=== PATIENT | female | born 1950 | race African-American/Black ===

== ENCOUNTER 2016-05-17 07:00 | Day surgery (SDC) | payer MEDICARE, MEDICAID ==
[~2016-05-17] VITALS: Ht 167.6 cm; Wt 46.4 kg
[~2016-05-17 07:00] MED LIST: ASPI-1035 PO; ATOR10TA PO; FLUT1DIS3 INH; FOLI-43 PO; Famotidine PO; LEVO500T15 PO; METH4TAB17 PO; Tramadol Hcl PO
[2016-05-17] MEDS ORDERED: FENTANYL CITRATE/PF 50MCG/ML 2ML VIAL ONE (10:25)
[2016-05-17 10:48] VITALS: BP 115/79
[2016-05-17] MEDS ORDERED: ALBU2SYR PO (10:58)
[2016-05-17 11:30] VITALS: BP 115/79
[2016-05-17 11:45] VITALS: BP 114/76
[2016-05-17] MEDS ORDERED: FENTANYL CITRATE/PF 50MCG/ML 2ML VIAL IV ONE (11:45)
[2016-05-17 12:00] VITALS: BP 112/70
[2016-05-17 12:05] VITALS: BP 115/79
[2016-05-17] MEDS ORDERED: SODIUM BICARBONATE 4% (2.4MEQ) 5ML VIAL IV ONE (14:05)
[2016-05-17] MEDS ORDERED: LIDOCAINE HCL 1% 20ML VIAL (Pyxis) INJ ONE (14:05)
== END 2016-05-17 15:00 | disposition home or self-care (01) ==
LOC: RAD 07:00 → EDSTATUS 05-20 07:05
PROVIDERS: ATTEND Internal Medicine Hematology & Oncology
PROC: 0B9L3ZX Drainage of Left Lung, Percutaneous Approach, Diagnostic (ICD-10-PCS; 2016-05-17)
PROC: BG44ZZZ Ultrasonography of Thyroid Gland (ICD-10-PCS; principal; 2016-05-17 12:40)
DX: R91.1 Solitary pulmonary nodule (principal); J43.9 Emphysema, unspecified
CPT/HCPCS: 32405; 71010; 76942; 88305; J3490; J3010

== ENCOUNTER 2016-05-28 08:28 | Emergency (ER) | payer MEDICARE, MEDICAID ==
[~2016-05-28] VITALS: Ht 162.6 cm; Wt 49.0 kg
[~2016-05-28 08:28] MED LIST changes: +ALBU2SYR PO
[2016-05-28] MEDS ORDERED: MORPHINE SULFATE 10 MG/ML CPJ IM ONE (09:15)
[2016-05-28] MEDS ORDERED: DIAZEPAM 5 MG TABLET PO ONE (10:15)
[2016-05-28 11:30] VITALS: BP 106/70
[2016-05-28] MEDS ORDERED: IPRATROPIUM/ALBUTEROL 0.5-3(2.5)MG/3ML NEB HHN ONE (12:30)
== END 2016-05-28 14:30 | disposition home or self-care (01) ==
LOC: ER 09:01
DX: M79.604 Pain in right leg (principal); M62.838 Other muscle spasm; J44.9 Chronic obstructive pulmonary disease, unspecified; Z88.0 Allergy status to penicillin; Z79.899 Other long term (current) drug therapy; Z79.82 Long term (current) use of aspirin; Z79.1 Long term (current) use of non-steroidal anti-inflammatories (NSAID)
CPT/HCPCS: 93970; 94640; 96372; 99284; J2270; J7620

== ENCOUNTER 2016-05-30 05:56 | Day surgery (SDC) | payer MEDICARE, MEDICAID ==
[~2016-05-30] VITALS: Ht 165.1 cm; Wt 36.3 kg
[2016-05-30 06:57] LABS: BASOPHILS % 0.7 % (0.0-2.0); EOSINOPHILS % 0.6 % (0.0-5.0); HEMATOCRIT. 26.5 % (36.0-48.0); HEMOGLOBIN. 8.5 g/dL (12.0-16.0); MEAN CORPUSCULAR HEMOGLOBIN 29.5 pg (28.0-32.0); MEAN CORPUSCULAR VOLUME 92.2 fL (81.0-99.0); MEAN PLATELET VOLUME 8.1 fl (7.4-10.4); MONOCYTES % 9.4 % (2.0-8.0); NEUTROPHILS % 76.3 % (40.0-76.0); RED BLOOD CELL COUNT 2.87 mill/uL (4.2-5.4); RED CELL DISTRIBUTION WIDTH 20.4 % (11.6-14.6); WHITE BLOOD COUNT 11.4 x1000/uL (4.5-11.0)
[2016-05-30 07:06] LABS: ADD RBC MORPHOLOGY YES; DIFFERENTIAL COMMENT 1; PLATELET 1573 x1000/uL (130-400)
[2016-05-30 07:08] LABS: CHLORIDE 98 mEq/L (98-107); INDEX HEMOLYSI 1 (1-3); INDEX ICTERIC 1 (1-4); INDEX LIPEMIC 1 (1-3)
[2016-05-30 07:14] LABS: ANION GAP 12; CALCIUM 9.8 mg/dL (8.5-10.1); CARBON DIOXIDE 33 mEq/L (21-32); UREA NITROGEN BLOOD 5 mg/dL (7-21); eGFR > 60 mL/min (>60)
[2016-05-30] MEDS ORDERED: LACTATED RINGERS 1,000 ML IV SCH (07:17)
[2016-05-30] MEDS ORDERED: LIDOCAINE HCL 1% 20ML VIAL (Pyxis) INJ ONE (07:36)
[2016-05-30] MEDS ORDERED: PROPOFOL 200MG/20ML VIAL IV ONE (07:41)
[2016-05-30] MEDS ORDERED: HYDROCODONE PO (07:42)
[2016-05-30] MEDS ORDERED: HYDR500C18 PO (07:44)
[2016-05-30 08:01] LABS: ANISOCYTOSIS 2+; GIANT PLATELETS FEW; PLATELET ESTIMATE MARKEDLY INCREASED; TARGET CELLS FEW
[2016-05-30] MEDS: FENTANYL CITRATE/PF 50MCG/ML 2ML VIAL IV PRN ×3 (08:41→10:35)
[2016-05-30] MEDS ORDERED: ALBUTEROL (0.083%) 2.5MG/3ML NEB HHN NR (10:33)
[2016-05-30 10:35] VITALS: BP 125/80
== END 2016-05-30 12:05 | disposition home or self-care (01) ==
LOC: OR 05:56
PROVIDERS: ATTEND Pathology Anatomic Pathology & Clinical Pathology
DX: D46.9 Myelodysplastic syndrome, unspecified (principal); J44.9 Chronic obstructive pulmonary disease, unspecified; D64.9 Anemia, unspecified
CPT/HCPCS: 36415; 38220; 80048; 85025; 85060; 85097; 88313; 93005; 94640; J3010; J3490; J7120; J7611; J2704

== ENCOUNTER 2016-10-14 20:27 | Inpatient (IN) | payer MEDICARE, MEDICAID ==
[~2016-10-14] VITALS: Ht 165.1 cm; Wt 43.7 kg
[~2016-10-14 20:27] MED LIST changes: -ASPI-1035 PO; +ASPI-1159 PO; +HYDR500C18 PO; +HYDROCODONE PO
[2016-10-14 23:09] LABS: CHLORIDE 98 mEq/L (98-107)
[2016-10-14 23:11] LABS: INR 1.1; PROTHROMBIN TIME 11.7 sec (9.4-11.6)
[2016-10-14 23:13] LABS: CARBON DIOXIDE 28 mEq/L (21-32)
[2016-10-14 23:43] LABS: BASOPHILS % 0.1 % (0.0-2.0); HEMOGLOBIN. 8.7 g/dL (12.0-16.0); LYMPHOCYTES % 8.3 % (20.0-50.0); MEAN CORPUSCULAR VOLUME 98.8 fL (81.0-99.0); MEAN PLATELET VOLUME 8.1 fl (7.4-10.4); MONOCYTES % 1.8 % (2.0-8.0); NEUTROPHILS % 89.8 % (40.0-76.0); PLATELET 458 x1000/uL (130-400); RED BLOOD CELL COUNT 2.64 mill/uL (4.2-5.4)
[2016-10-15] VITALS (32 sets, daily range): BP systolic 81–145; BP diastolic 15–92
[2016-10-15] MEDS ORDERED: ALBUTEROL (0.5%) 2.5MG/0.5ML NEB HHN ONE
[2016-10-15] MEDS ORDERED: MORPHINE SULFATE 4 MG/ML CPJ (NOT FOR IM USE) IV ONE
[2016-10-15] MEDS ORDERED: LEVOFLOXACIN 750MG PREMIX 150 ML IV ONE
[2016-10-15] MEDS ORDERED: SODIUM CHLORIDE 0.9% 1,000 ML IV ONE (00:30)
[2016-10-15] MEDS ORDERED: SODIUM CHLORIDE 0.9% 500 ML IV ONE (00:45)
[2016-10-15] MEDS ORDERED: POTASSIUM CHLORIDE 20MEQ TABLET SR PO ONE (01:00)
[2016-10-15] MEDS ORDERED: MORPHINE SULFATE 2 MG/ML CPJ (NOT FOR IM USE) IV PRN (05:30)
[2016-10-15] MEDS: SODIUM CHLORIDE 0.9% 1,000 ML IV SCH ×2 (07:15→12:04)
[2016-10-15 08:01] LABS: HEMATOCRIT. 23.6 % (36.0-48.0); HEMOGLOBIN. 7.9 g/dL (12.0-16.0); MEAN CORPUSCULAR HEMOGLOBIN 33.3 pg (28.0-32.0); MEAN CORPUSCULAR VOLUME 99.5 fL (81.0-99.0); MEAN PLATELET VOLUME 8.3 fl (7.4-10.4); PLATELET 410 x1000/uL (130-400); RED BLOOD CELL COUNT 2.37 mill/uL (4.2-5.4); RED CELL DISTRIBUTION WIDTH 21.8 % (11.6-14.6)
[2016-10-15 08:40] LABS: CHLORIDE 102 mEq/L (98-107)
[2016-10-15 08:55] LABS: CARBON DIOXIDE 25 mEq/L (21-32)
[2016-10-15] MEDS ORDERED: SODIUM CHLORIDE 0.9% 500 ML IV NR (09:45)
[2016-10-15] MEDS ORDERED: DIPHENHYDRAMINE 50MG/ML VIAL IV PRN (10:15)
[2016-10-15] MEDS ORDERED: PIPERACILLIN/TAZ 3.375G PREMIX 50 ML IV NR (11:30)
[2016-10-15 11:52] LABS: BG BASE EXCESS -0.7 mmol/L (-2.0-2.0); BG CARBOXYHEMOGLOBIN 0.6 % (0.5-1.5); BG DEOXYHEMOGLOBIN 1.8 % (0.0-5.0); BG FRACTION INSPIRED OXYGEN 28; BG HCO3 ACT 22.6 mmol/L (22.0-26.0); BG METHEMOGLOBIN 0.3 % (0.0-1.5); BG OXYGEN SATURATION 98.2 % (92.0-98.5); BG OXYHEMOGLOBIN 97.3 % (94.0-97.0); BG PCO2 31.6 mmHg (35.0-45.0); BG PH 7.473 (7.350-7.450); BG SAMPLE SITE RIGHT BRACHIAL; BG TOTAL HEMOGLOBIN 7.5 g/dL (12.0-18.0); BG VENT MODE NASAL CANNULA
[2016-10-15] MEDS ORDERED: VANCOMYCIN 750 MG PREMIX 150 ML IV NR (12:00)
[2016-10-15] MEDS ORDERED: MORPHINE SULFATE 4 MG/ML CPJ (NOT FOR IM USE) IV NR (13:49)
[2016-10-15] MEDS ORDERED: OXYCODONE HCL/ACETAMINOPHEN 5/325MG TABLET PO PRN (14:00)
[2016-10-15] MEDS ORDERED: POTASSIUM CHLORIDE INJ 40 MEQ in DEXT 5% WATER 250 ML IV NR (15:30)
[2016-10-15 15:37] LABS: PLATELET ESTIMATE NORMAL
[2016-10-15] MEDS: IPRATROPIUM/ALBUTEROL 0.5-3(2.5)MG/3ML NEB HHN SCH ×2 (16:30→20:53)
[2016-10-15 18:54] LABS: CLARITY URINE CLEAR (CLEAR); COLOR URINE YELLOW (YELLOW); GLUCOSE URINE NEGATIVE (NEGATIVE); KETONES URINE NEGATIVE (NEGATIVE); LEUKOCYTE ESTERASE URINE NEGATIVE (NEGATIVE); NITRITE URINE NEGATIVE (NEGATIVE); OCCULT BLOOD URINE 1+ (NEGATIVE); PROTEIN URINE TRACE (NEGATIVE); SPECIFIC GRAVITY URINE 1.021 (1.005-1.030); UROBILINOGEN URINE 0.2 E.U./dL (0.2-1.0)
[2016-10-15] MEDS: PIPERACILLIN/TAZ 3.375G PREMIX 50 ML IV SCH (19:35)
[2016-10-15] MEDS: ATORVASTATIN CALCIUM 10MG TABLET PO SCH (20:10)
[2016-10-15] MEDS: MORPHINE SULFATE 15MG TABLET SR PO SCH (20:10)
[2016-10-16] VITALS (18 sets, daily range): BP systolic 92–131; BP diastolic 42–95
[2016-10-16] MEDS ORDERED: VANCOMYCIN 500 MG PREMIX 100 ML IV SCH
[2016-10-16] MEDS: MORPHINE SULFATE 4 MG/ML CPJ (NOT FOR IM USE) IV PRN ×3 (00:41→12:36)
[2016-10-16] MEDS: IPRATROPIUM/ALBUTEROL 0.5-3(2.5)MG/3ML NEB HHN SCH ×6 (00:49→20:16)
[2016-10-16] MEDS: PIPERACILLIN/TAZ 3.375G PREMIX 50 ML IV SCH ×3 (03:18→20:11)
[2016-10-16] MEDS: ASPIRIN 81MG EC TABLET PO SCH (08:30)
[2016-10-16] MEDS: FOLIC ACID 1MG TABLET PO SCH (08:30)
[2016-10-16] MEDS: HYDROXYUREA 500MG CAPSULE PO SCH (08:30)
[2016-10-16] MEDS: MORPHINE SULFATE 15MG TABLET SR PO SCH ×2 (08:32→21:21)
[2016-10-16 09:31] LABS: BASOPHILS % 0.1 % (0.0-2.0); HEMATOCRIT. 30.2 % (36.0-48.0); HEMOGLOBIN. 10.2 g/dL (12.0-16.0); LYMPHOCYTES % 11.5 % (20.0-50.0); MEAN CORPUSCULAR HEMOGLOBIN 30.8 pg (28.0-32.0); MEAN CORPUSCULAR VOLUME 90.7 fL (81.0-99.0); MEAN PLATELET VOLUME 8.1 fl (7.4-10.4); MONOCYTES % 2.5 % (2.0-8.0); NEUTROPHILS % 85.9 % (40.0-76.0); PLATELET 303 x1000/uL (130-400); RED BLOOD CELL COUNT 3.33 mill/uL (4.2-5.4); RED CELL DISTRIBUTION WIDTH 21.6 % (11.6-14.6)
[2016-10-16 09:54] LABS: CARBON DIOXIDE 26 mEq/L (21-32); CHLORIDE 108 mEq/L (98-107)
[2016-10-16] MEDS: SODIUM CHLORIDE 0.9% 1,000 ML IV SCH ×2 (10:47→21:28)
[2016-10-16] MEDS: VANCOMYCIN 500 MG PREMIX 100 ML IV SCH ×2 (11:00→21:21)
[2016-10-16] MEDS: ATORVASTATIN CALCIUM 10MG TABLET PO SCH (21:21)
[2016-10-17] VITALS (50 sets, daily range): BP systolic 45–133; BP diastolic 16–88
[2016-10-17] MEDS: IPRATROPIUM/ALBUTEROL 0.5-3(2.5)MG/3ML NEB HHN SCH ×6 (00:39→21:38)
[2016-10-17] MEDS: PIPERACILLIN/TAZ 3.375G PREMIX 50 ML IV SCH ×3 (04:02→20:19)
[2016-10-17 07:48] LABS: CARBON DIOXIDE 24 mEq/L (21-32); CHLORIDE 105 mEq/L (98-107)
[2016-10-17] MEDS ORDERED: POTASSIUM CHLORIDE INJ 40 MEQ in DEXT 5% WATER 250 ML IV SCH (09:00)
[2016-10-17] MEDS: VANCOMYCIN 500 MG PREMIX 100 ML IV SCH (09:06)
[2016-10-17] MEDS: FOLIC ACID 1MG TABLET PO SCH (09:07)
[2016-10-17] MEDS: ASPIRIN 81MG EC TABLET PO SCH (09:07)
[2016-10-17] MEDS: HYDROXYUREA 500MG CAPSULE PO SCH (09:12)
[2016-10-17] MEDS: MORPHINE SULFATE 15MG TABLET SR PO SCH ×2 (09:12→21:29)
[2016-10-17] MEDS: SODIUM CHLORIDE 0.9% 1,000 ML IV SCH (10:50)
[2016-10-17] MEDS ORDERED: NOREPINEPHRINE 4 MG in DEXT 5% WATER 246 ML IV PRN (13:00)
[2016-10-17] MEDS ORDERED: ALBUMIN HUMAN 25GM/100ML (25%) IV NR (13:45)
[2016-10-17] MEDS: DEXT 5%/0.45% NACL 1000ML 1,000 ML IV SCH (15:11)
[2016-10-17 15:41] LABS: HEMATOCRIT 25.9 % (36.0-48.0)
[2016-10-17] MEDS ORDERED: MAGNESIUM 4 G PREMIX 100 ML IV NR (18:00)
[2016-10-17] MEDS: VANCOMYCIN 750 MG PREMIX 150 ML IV SCH (18:28)
[2016-10-17] MEDS: ATORVASTATIN CALCIUM 10MG TABLET PO SCH (21:28)
[2016-10-18] VITALS (62 sets, daily range): BP systolic 78–110; BP diastolic 46–74
[2016-10-18] MEDS: IPRATROPIUM/ALBUTEROL 0.5-3(2.5)MG/3ML NEB HHN SCH ×6 (01:07→20:31)
[2016-10-18] MEDS: PIPERACILLIN/TAZ 3.375G PREMIX 50 ML IV SCH ×3 (03:29→20:27)
[2016-10-18] MEDS: DEXT 5%/0.45% NACL 1000ML 1,000 ML IV SCH (03:29)
[2016-10-18] MEDS: VANCOMYCIN 750 MG PREMIX 150 ML IV SCH ×2 (06:52→19:12)
[2016-10-18] MEDS: MORPHINE SULFATE 4 MG/ML CPJ (NOT FOR IM USE) IV PRN (06:58)
[2016-10-18] MEDS: FOLIC ACID 1MG TABLET PO SCH (08:41)
[2016-10-18] MEDS: ASPIRIN 81MG EC TABLET PO SCH (08:41)
[2016-10-18] MEDS: MORPHINE SULFATE 15MG TABLET SR PO SCH (08:50)
[2016-10-18] MEDS: HYDROXYUREA 500MG CAPSULE PO SCH (08:57)
[2016-10-18] MEDS: MIDODRINE HCL 2.5MG TABLET PO SCH ×3 (09:04→17:00)
[2016-10-18] MEDS ORDERED: MORPHINE SULFATE 15MG TABLET SR PO SCH (09:15)
[2016-10-18 09:37] LABS: HEMATOCRIT. 29.7 % (36.0-48.0); MEAN CORPUSCULAR HEMOGLOBIN 30.7 pg (28.0-32.0); MEAN CORPUSCULAR VOLUME 90.9 fL (81.0-99.0); MEAN PLATELET VOLUME 8.5 fl (7.4-10.4); PLATELET 265 x1000/uL (130-400); RED BLOOD CELL COUNT 3.26 mill/uL (4.2-5.4); RED CELL DISTRIBUTION WIDTH 20.6 % (11.6-14.6)
[2016-10-18 09:46] LABS: CHLORIDE 109 mEq/L (98-107)
[2016-10-18 09:54] LABS: CARBON DIOXIDE 29 mEq/L (21-32)
[2016-10-18 11:54] LABS: PLATELET ESTIMATE NORMAL
[2016-10-18] MEDS: DEXT 5%/0.45% NACL KCL 40MEQ/L 1,000 ML IV SCH (12:56)
[2016-10-18] MEDS ORDERED: POTASSIUM CHLORIDE INJ 40 MEQ in DEXT 5% WATER 250 ML IV NR ×2 (15:00→21:00)
[2016-10-18] MEDS ORDERED: MAGNESIUM 2 G PREMIX 50 ML IV NR (15:00)
[2016-10-18] MEDS: ATORVASTATIN CALCIUM 10MG TABLET PO SCH (20:27)
[2016-10-18] MEDS: MORPHINE SULFATE 30MG TABLET SR PO SCH (20:28)
[2016-10-19] VITALS (32 sets, daily range): BP systolic 96–132; BP diastolic 55–87
[2016-10-19] MEDS: IPRATROPIUM/ALBUTEROL 0.5-3(2.5)MG/3ML NEB HHN SCH ×6 (01:05→21:30)
[2016-10-19] MEDS: DEXT 5%/0.45% NACL KCL 40MEQ/L 1,000 ML IV SCH ×2 (01:20→14:36)
[2016-10-19] MEDS: PIPERACILLIN/TAZ 3.375G PREMIX 50 ML IV SCH ×3 (03:34→21:16)
[2016-10-19] MEDS: MORPHINE SULFATE 4 MG/ML CPJ (NOT FOR IM USE) IV PRN ×3 (03:37→14:36)
[2016-10-19] MEDS: VANCOMYCIN 750 MG PREMIX 150 ML IV SCH ×2 (05:23→17:44)
[2016-10-19 05:39] LABS: BASOPHILS % 0.1 % (0.0-2.0); EOSINOPHILS % 0.5 % (0.0-5.0); HEMATOCRIT. 32.9 % (36.0-48.0); MEAN CORPUSCULAR HEMOGLOBIN 30.6 pg (28.0-32.0); MEAN CORPUSCULAR VOLUME 91.8 fL (81.0-99.0); MONOCYTES % 5.3 % (2.0-8.0); NEUTROPHILS % 86.1 % (40.0-76.0); PLATELET 262 x1000/uL (130-400); RED BLOOD CELL COUNT 3.59 mill/uL (4.2-5.4); RED CELL DISTRIBUTION WIDTH 21.9 % (11.6-14.6)
[2016-10-19 06:09] LABS: CARBON DIOXIDE 24 mEq/L (21-32); CHLORIDE 110 mEq/L (98-107)
[2016-10-19] MEDS: FOLIC ACID 1MG TABLET PO SCH (09:22)
[2016-10-19] MEDS: MORPHINE SULFATE 30MG TABLET SR PO SCH ×2 (09:23→22:58)
[2016-10-19] MEDS: ASPIRIN 81MG EC TABLET PO SCH (09:23)
[2016-10-19] MEDS: MIDODRINE HCL 2.5MG TABLET PO SCH ×3 (09:23→17:44)
[2016-10-19] MEDS: HYDROXYUREA 500MG CAPSULE PO SCH (09:23)
[2016-10-19] MEDS: ATORVASTATIN CALCIUM 10MG TABLET PO SCH (21:18)
[2016-10-20] VITALS: BP 110/62
[2016-10-20] MEDS: IPRATROPIUM/ALBUTEROL 0.5-3(2.5)MG/3ML NEB HHN SCH ×6 (01:32→20:33)
[2016-10-20] MEDS: PIPERACILLIN/TAZ 3.375G PREMIX 50 ML IV SCH ×3 (03:20→20:22)
[2016-10-20 04:00] VITALS: BP 117/72
[2016-10-20] MEDS: DEXT 5%/0.45% NACL KCL 40MEQ/L 1,000 ML IV SCH ×2 (04:07→20:21)
[2016-10-20] MEDS: MORPHINE SULFATE 4 MG/ML CPJ (NOT FOR IM USE) IV PRN (04:12)
[2016-10-20] MEDS: VANCOMYCIN 750 MG PREMIX 150 ML IV SCH (05:46)
[2016-10-20 08:00] VITALS: BP 118/68
[2016-10-20] MEDS ORDERED: MORPHINE SULFATE 2 MG/ML CPJ (NOT FOR IM USE) IV PRN (09:15)
[2016-10-20] MEDS: ASPIRIN 81MG EC TABLET PO SCH (09:43)
[2016-10-20] MEDS: MORPHINE SULFATE 30MG TABLET SR PO SCH ×2 (09:43→20:23)
[2016-10-20] MEDS: FOLIC ACID 1MG TABLET PO SCH (09:43)
[2016-10-20] MEDS: MIDODRINE HCL 2.5MG TABLET PO SCH ×3 (09:44→16:17)
[2016-10-20] MEDS: HYDROXYUREA 500MG CAPSULE PO SCH (09:44)
[2016-10-20 12:00] VITALS: BP 116/73
[2016-10-20 16:00] VITALS: BP 134/93
[2016-10-20 20:00] VITALS: BP 132/89
[2016-10-20] MEDS: ATORVASTATIN CALCIUM 10MG TABLET PO SCH (20:22)
[2016-10-20] MEDS ORDERED: MORPHINE SULFATE 4 MG/ML CPJ (NOT FOR IM USE) IV PRN (21:59)
[2016-10-20] MEDS ORDERED: OXYCODONE HCL/ACETAMINOPHEN 5/325MG TABLET PO PRN (22:00)
[2016-10-21] VITALS (8 sets, daily range): BP systolic 116–133; BP diastolic 63–80
[2016-10-21] MEDS: IPRATROPIUM/ALBUTEROL 0.5-3(2.5)MG/3ML NEB HHN SCH ×5 (00:09→16:48)
[2016-10-21] MEDS: PIPERACILLIN/TAZ 3.375G PREMIX 50 ML IV SCH ×3 (04:31→19:54)
[2016-10-21] MEDS: HYDROXYUREA 500MG CAPSULE PO SCH (09:13)
[2016-10-21] MEDS: MORPHINE SULFATE 30MG TABLET SR PO SCH ×2 (09:13→21:35)
[2016-10-21] MEDS: ASPIRIN 81MG EC TABLET PO SCH (09:13)
[2016-10-21] MEDS: MIDODRINE HCL 2.5MG TABLET PO SCH ×3 (09:13→17:30)
[2016-10-21] MEDS: FOLIC ACID 1MG TABLET PO SCH (09:13)
[2016-10-21] MEDS ORDERED: MORPHINE SULFATE 2 MG/ML CPJ (NOT FOR IM USE) IV PRN (10:30)
[2016-10-21] MEDS: DEXT 5%/0.45% NACL KCL 40MEQ/L 1,000 ML IV SCH (13:04)
[2016-10-21] MEDS: ATORVASTATIN CALCIUM 10MG TABLET PO SCH (21:34)
== END 2016-10-21 22:30 | disposition home health service (06) | DRG 720 ==
LOC: ER 21:01 → 5WST 10-15 00:45 → ENRESERV 10-15 02:38 → 3WST 10-15 10:37 → MICUNO 10-17 11:38 → 8WST 10-19 18:36
PROVIDERS: ADMIT Internal Medicine; ATTEND Internal Medicine
PROC: 30233N1 Transfusion of Nonautologous Red Blood Cells into Peripheral Vein, Percutaneous Approach (ICD-10-PCS; 2016-10-15)
PROC: 02HV33Z Insertion of Infusion Device into Superior Vena Cava, Percutaneous Approach (ICD-10-PCS; principal; 2016-10-17)
PROC: B548ZZA Ultrasonography of Superior Vena Cava, Guidance (ICD-10-PCS; 2016-10-17)
DX: A41.9 Sepsis, unspecified organism (principal); E43 Unspecified severe protein-calorie malnutrition; R65.21 Severe sepsis with septic shock; L89.159 Pressure ulcer of sacral region, unspecified stage; J96.10 Chronic respiratory failure, unspecified whether with hypoxia or hypercapnia; I27.2 Other secondary pulmonary hypertension; C34.90 Malignant neoplasm of unspecified part of unspecified bronchus or lung; C79.51 Secondary malignant neoplasm of bone; Z87.891 Personal history of nicotine dependence; Z99.81 Dependence on supplemental oxygen; D45 Polycythemia vera; J44.9 Chronic obstructive pulmonary disease, unspecified; E86.0 Dehydration; R62.7 Adult failure to thrive; E83.42 Hypomagnesemia; L08.9 Local infection of the skin and subcutaneous tissue, unspecified; D63.0 Anemia in neoplastic disease; E87.6 Hypokalemia; M54.9 Dorsalgia, unspecified; G89.4 Chronic pain syndrome; M13.0 Polyarthritis, unspecified; Z79.82 Long term (current) use of aspirin; Z79.899 Other long term (current) drug therapy; Z88.0 Allergy status to penicillin; Z68.1 Body mass index [BMI] 19.9 or less, adult
CPT/HCPCS: 36415; 36569; 36600; 71010; 76937; 80048; 80053; 80202; 81001; 81003; 82375; 82728; 82805; 83605; 83735; 83930; 83935; 84132; 85014; 85018; 85025; 85610; 86300; 86850; 86900; 86920; 87040; 87086; 87493; 93005; 93306; 93970; 94640; 96361; 96365; 96366; 96375; 99285; C1725; J1956; J2270; J2543; J3370; J3475; J3480; J3490; J7030; J7040; J7050; J7060; J7611; J7620; P9016; P9047; A4315

== ENCOUNTER 2016-11-22 08:50 | Inpatient (IN) | payer MEDICARE, MEDICAID ==
[2016-11-22] VITALS (11 sets, daily range): BP systolic 78–90; BP diastolic 40–56
[~2016-11-22] VITALS: Ht 160 cm; Wt 50.8 kg
[~2016-11-22 08:50] MED LIST changes: -LEVO500T15 PO; +LEVO500T2 PO
[2016-11-22] MEDS ORDERED: SODIUM CHLORIDE 0.9% 1,000 ML IV ONE (08:58)
[2016-11-22] MEDS ORDERED: MORPHINE SULFATE 4 MG/ML CPJ (NOT FOR IM USE) IV ONE (09:15)
[2016-11-22 10:25] LABS: BG CARBOXYHEMOGLOBIN 0.3 % (0.5-1.5); BG DEOXYHEMOGLOBIN 1.1 % (0.0-5.0); BG HCO3 ACT 26.5 mmol/L (22.0-26.0); BG METHEMOGLOBIN 0.3 % (0.0-1.5); BG OXYGEN SATURATION 98.9 % (92.0-98.5); BG OXYHEMOGLOBIN 98.3 % (94.0-97.0); BG PCO2 34.4 mmHg (35.0-45.0); BG PH 7.504 (7.350-7.450); BG PO2 169.9 mmHg (75.0-100.0); BG SAMPLE SITE RIGHT BRACHIAL; BG TOTAL HEMOGLOBIN 4.9 g/dL (12.0-18.0); BG VENT MODE NASAL CANNULA
[2016-11-22 10:29] LABS: CARBON DIOXIDE 27 mEq/L (21-32); CHLORIDE 108 mEq/L (98-107)
[2016-11-22 10:33] LABS: BASOPHILS % 0.1 % (0.0-2.0); EOSINOPHILS % 0.3 % (0.0-5.0); LYMPHOCYTES % 9.8 % (20.0-50.0); MEAN CORPUSCULAR HEMOGLOBIN 30.5 pg (28.0-32.0); MEAN CORPUSCULAR VOLUME 93.6 fL (81.0-99.0); MEAN PLATELET VOLUME 10.2 fl (7.4-10.4); MONOCYTES % 2.9 % (2.0-8.0); NEUTROPHILS % 86.9 % (40.0-76.0); RED BLOOD CELL COUNT 1.44 mill/uL (4.2-5.4); RED CELL DISTRIBUTION WIDTH 24.8 % (11.6-14.6)
[2016-11-22 10:37] LABS: HEMATOCRIT. 13.5 % (36.0-48.0)
[2016-11-22 10:38] LABS: HEMOGLOBIN. 4.4 g/dL (12.0-16.0)
[2016-11-22] MEDS ORDERED: LEVOFLOXACIN 750MG PREMIX 150 ML IV ONE (10:45)
[2016-11-22] MEDS ORDERED: SODIUM CHLORIDE 0.9% 500 ML IV ONE ×2 (11:05→13:45)
[2016-11-22 11:47] LABS: INR 1.2; PROTHROMBIN TIME 12.2 sec (9.4-11.6)
[2016-11-22 11:52] LABS: PLATELET 271 x1000/uL (130-400)
[2016-11-22 12:02] LABS: CLARITY URINE CLEAR (CLEAR); COLOR URINE YELLOW (YELLOW); GLUCOSE URINE NEGATIVE (NEGATIVE); KETONES URINE 1+ (NEGATIVE); LEUKOCYTE ESTERASE URINE NEGATIVE (NEGATIVE); NITRITE URINE NEGATIVE (NEGATIVE); OCCULT BLOOD URINE NEGATIVE (NEGATIVE); PROTEIN URINE 2+ (NEGATIVE); SPECIFIC GRAVITY URINE 1.019 (1.005-1.030); UROBILINOGEN URINE 0.2 E.U./dL (0.2-1.0)
[2016-11-22] MEDS ORDERED: ACETAMINOPHEN 325MG TABLET PO PRN (14:00)
[2016-11-22] MEDS ORDERED: ONDANSETRON HCL 4MG/2ML VIAL IV PRN (14:00)
[2016-11-22] MEDS ORDERED: VANCOMYCIN 1 G PREMIX 200 ML IV SCH (14:00)
[2016-11-22] MEDS ORDERED: IPRATROPIUM/ALBUTEROL 0.5-3(2.5)MG/3ML NEB INH PRN (14:00)
[2016-11-22] MEDS ORDERED: VANCOMYCIN 750 MG PREMIX 150 ML IV NR (18:00)
[2016-11-22] MEDS: DEXT 5%/0.45% NACL 1000ML 1,000 ML IV SCH (18:01)
[2016-11-22] MEDS: METHYLPREDNISOLONE SOD SUCC 40 MG/ML VIAL IV SCH (21:36)
[2016-11-23] VITALS (12 sets, daily range): BP systolic 80–94; BP diastolic 48–67
[2016-11-23] MEDS: IPRATROPIUM/ALBUTEROL 0.5-3(2.5)MG/3ML NEB HHN SCH ×6 (00:37→21:03)
[2016-11-23 01:04] LABS: HEMATOCRIT 24.5 % (36.0-48.0); HEMOGLOBIN 8.5 g/dL (12.0-16.0); MEAN CORPUSCULAR HEMOGLOBIN 31.5 pg (28.0-32.0); MEAN CORPUSCULAR VOLUME 91.3 fL (81.0-99.0); PLATELET 264 x1000/uL (130-400); RED BLOOD CELL COUNT 2.68 mill/uL (4.2-5.4); RED CELL DISTRIBUTION WIDTH 16.3 % (11.6-14.6)
[2016-11-23 01:27] LABS: TROPONIN I 0.02 ng/mL (0.00-0.04)
[2016-11-23] MEDS: VANCOMYCIN 500 MG PREMIX 100 ML IV SCH ×2 (05:05→17:25)
[2016-11-23] MEDS: DEXT 5%/0.45% NACL 1000ML 1,000 ML IV SCH ×3 (05:07→23:19)
[2016-11-23 06:00] LABS: HEMATOCRIT. 25.5 % (36.0-48.0); HEMOGLOBIN. 8.6 g/dL (12.0-16.0); MEAN CORPUSCULAR HEMOGLOBIN 31.4 pg (28.0-32.0); MEAN CORPUSCULAR VOLUME 93.2 fL (81.0-99.0); RED BLOOD CELL COUNT 2.74 mill/uL (4.2-5.4); RED CELL DISTRIBUTION WIDTH 16.1 % (11.6-14.6)
[2016-11-23 06:37] LABS: CARBON DIOXIDE 25 mEq/L (21-32); CHLORIDE 112 mEq/L (98-107)
[2016-11-23 08:20] LABS: FOLIC ACID (FOLATE) SERUM 6.1 ng/mL (>5.38)
[2016-11-23] MEDS: BUDESONIDE 0.5MG/2ML NEB HHN SCH ×2 (08:42→21:03)
[2016-11-23] MEDS: METHYLPREDNISOLONE SOD SUCC 40 MG/ML VIAL IV SCH ×2 (08:50→20:46)
[2016-11-23] MEDS: PANTOPRAZOLE SODIUM 40 MG/VIAL IV SCH ×2 (08:50→09:42)
[2016-11-23] MEDS: MORPHINE SULFATE 4 MG/ML CPJ (NOT FOR IM USE) IV PRN ×3 (08:52→22:26)
[2016-11-23] MEDS ORDERED: POTASSIUM CHLORIDE INJ 40 MEQ in DEXT 5% WATER 250 ML IV SCH (09:00)
[2016-11-23] MEDS: LEVOFLOXACIN 250MG PREMIX 50 ML IV SCH (09:44)
[2016-11-23 13:46] LABS: PLATELET ESTIMATE INCREASED
[2016-11-24] VITALS (11 sets, daily range): BP systolic 89–114; BP diastolic 21–80
[2016-11-24] MEDS: DEXT 5%/0.45% NACL 1000ML 1,000 ML IV SCH ×2 (00:30→11:11)
[2016-11-24] MEDS: IPRATROPIUM/ALBUTEROL 0.5-3(2.5)MG/3ML NEB HHN SCH ×6 (01:07→20:08)
[2016-11-24] MEDS: MORPHINE SULFATE 4 MG/ML CPJ (NOT FOR IM USE) IV PRN ×3 (04:24→17:54)
[2016-11-24] MEDS: VANCOMYCIN 500 MG PREMIX 100 ML IV SCH ×2 (05:25→17:54)
[2016-11-24 05:53] LABS: INR 1.2; PARTIAL THROMBOPLASTIN TIME 29.6 sec (23.4-31.0); PROTHROMBIN TIME 12.1 sec (9.4-11.6)
[2016-11-24 06:12] LABS: HEMATOCRIT. 24.6 % (36.0-48.0); HEMOGLOBIN. 8.5 g/dL (12.0-16.0); MEAN CORPUSCULAR HEMOGLOBIN 31.4 pg (28.0-32.0); MEAN CORPUSCULAR VOLUME 91.2 fL (81.0-99.0)
[2016-11-24 06:47] LABS: CARBON DIOXIDE 28 mEq/L (21-32); CHLORIDE 107 mEq/L (98-107)
[2016-11-24 07:19] LABS: PLATELET ESTIMATE NORMAL
[2016-11-24] MEDS: BUDESONIDE 0.5MG/2ML NEB HHN SCH ×2 (07:41→20:08)
[2016-11-24] MEDS ORDERED: POTASSIUM CHLORIDE INJ 60 MEQ in DEXT 5% WATER 500 ML IV NR (10:00)
[2016-11-24] MEDS: METHYLPREDNISOLONE SOD SUCC 40 MG/ML VIAL IV SCH (11:09)
[2016-11-24] MEDS: PANTOPRAZOLE SODIUM 40 MG/VIAL IV SCH (11:10)
[2016-11-24] MEDS: LEVOFLOXACIN 250MG PREMIX 50 ML IV SCH (11:10)
[2016-11-24] MEDS ORDERED: SODIUM CHLORIDE 0.9% 10ML VIAL ONE (13:59)
[2016-11-24] MEDS ORDERED: SIMETHICONE 40 MG/0.6 ML 30ML ONE (13:59)
[2016-11-24] MEDS ORDERED: FENTANYL CITRATE/PF 50MCG/ML 2ML VIAL ONE (14:26)
[2016-11-24] MEDS ORDERED: MIDAZOLAM HCL 5 MG/5 ML VIAL ONE (14:27)
[2016-11-24] MEDS ORDERED: MIDAZOLAM HCL 5 MG/5 ML VIAL IV PRN (16:06)
[2016-11-25] VITALS (13 sets, daily range): BP systolic 90–130; BP diastolic 50–82
[2016-11-25] MEDS: IPRATROPIUM/ALBUTEROL 0.5-3(2.5)MG/3ML NEB HHN SCH ×5 (01:05→20:43)
[2016-11-25] MEDS: VANCOMYCIN 500 MG PREMIX 100 ML IV SCH ×2 (05:25→18:37)
[2016-11-25 06:51] LABS: HEMOGLOBIN. 8.5 g/dL (12.0-16.0); MEAN CORPUSCULAR VOLUME 92.4 fL (81.0-99.0)
[2016-11-25 06:52] LABS: MEAN CORPUSCULAR HEMOGLOBIN 31.6 pg (28.0-32.0); RED CELL DISTRIBUTION WIDTH 17.2 % (11.6-14.6)
[2016-11-25 06:57] LABS: CARBON DIOXIDE 27 mEq/L (21-32); CHLORIDE 106 mEq/L (98-107)
[2016-11-25] MEDS: BUDESONIDE 0.5MG/2ML NEB HHN SCH (07:37)
[2016-11-25] MEDS: MORPHINE SULFATE 4 MG/ML CPJ (NOT FOR IM USE) IV PRN ×2 (09:08→14:08)
[2016-11-25] MEDS: DEXT 5%/0.45% NACL 1000ML 1,000 ML IV SCH ×2 (09:09→12:35)
[2016-11-25] MEDS: PANTOPRAZOLE SODIUM 40 MG/VIAL IV SCH (09:09)
[2016-11-25] MEDS ORDERED: POTASSIUM CHLORIDE 20MEQ/PACKET GT NR (11:30)
[2016-11-25] MEDS: LEVOFLOXACIN 250MG PREMIX 50 ML IV SCH (12:36)
[2016-11-26] VITALS (13 sets, daily range): BP systolic 81–132; BP diastolic 38–74
[2016-11-26] MEDS: DEXT 5%/0.45% NACL 1000ML 1,000 ML IV SCH ×3 (00:01→21:09)
[2016-11-26] MEDS: IPRATROPIUM/ALBUTEROL 0.5-3(2.5)MG/3ML NEB HHN SCH ×6 (00:51→20:17)
[2016-11-26] MEDS: VANCOMYCIN 500 MG PREMIX 100 ML IV SCH ×2 (06:02→18:15)
[2016-11-26] MEDS: PANTOPRAZOLE SODIUM 40 MG/VIAL IV SCH (08:04)
[2016-11-26] MEDS: MORPHINE SULFATE 4 MG/ML CPJ (NOT FOR IM USE) IV PRN ×6 (08:05→22:29)
[2016-11-26] MEDS: LEVOFLOXACIN 250MG PREMIX 50 ML IV SCH (09:59)
[2016-11-26] MEDS: LORAZEPAM 2MG/ML CPJ IV PRN ×2 (18:49→22:29)
[2016-11-27] VITALS (12 sets, daily range): BP systolic 77–102; BP diastolic 49–68
[2016-11-27] MEDS: IPRATROPIUM/ALBUTEROL 0.5-3(2.5)MG/3ML NEB HHN SCH ×6 (00:02→20:54)
[2016-11-27] MEDS: MORPHINE SULFATE 4 MG/ML CPJ (NOT FOR IM USE) IV PRN ×2 (01:05→03:58)
[2016-11-27] MEDS: LORAZEPAM 2MG/ML CPJ IV PRN ×4 (03:58→22:06)
[2016-11-27] MEDS: VANCOMYCIN 500 MG PREMIX 100 ML IV SCH ×2 (05:37→17:47)
[2016-11-27] MEDS: DEXT 5%/0.45% NACL 1000ML 1,000 ML IV SCH ×3 (05:46→17:48)
[2016-11-27] MEDS: PANTOPRAZOLE SODIUM 40 MG/VIAL IV SCH (08:03)
[2016-11-27] MEDS: LEVOFLOXACIN 250MG PREMIX 50 ML IV SCH (10:59)
[2016-11-28] VITALS: BP 102/71
[2016-11-28] MEDS: IPRATROPIUM/ALBUTEROL 0.5-3(2.5)MG/3ML NEB HHN SCH ×3 (01:13→08:46)
[2016-11-28 02:00] VITALS: BP 109/65
[2016-11-28] MEDS: DEXT 5%/0.45% NACL 1000ML 1,000 ML IV SCH (03:32)
[2016-11-28] MEDS: MORPHINE SULFATE 4 MG/ML CPJ (NOT FOR IM USE) IV PRN (03:34)
[2016-11-28 04:00] VITALS: BP 89/55
[2016-11-28] MEDS: VANCOMYCIN 500 MG PREMIX 100 ML IV SCH (05:31)
[2016-11-28 06:00] VITALS: BP 100/63
[2016-11-28 07:46] VITALS: BP 100/63
[2016-11-28 08:00] VITALS: BP 105/67
[2016-11-28] MEDS: PANTOPRAZOLE SODIUM 40 MG/VIAL IV SCH (08:56)
[2016-11-28] MEDS: LORAZEPAM 2MG/ML CPJ IV PRN (09:31)
== END 2016-11-28 18:45 | disposition hospice, home (50) | DRG 720 ==
LOC: ER 09:05 → EDBEDREQ 10:39 → 5EST 11:02 → EDBEDREQTM 11:05 → EDBEDREQ 11:05 → ENRESERV 13:54
PROVIDERS: ADMIT Internal Medicine Critical Care Medicine; ATTEND Internal Medicine Critical Care Medicine
PROC: 30233N1 Transfusion of Nonautologous Red Blood Cells into Peripheral Vein, Percutaneous Approach (ICD-10-PCS; principal; 2016-11-22)
PROC: 02HV33Z Insertion of Infusion Device into Superior Vena Cava, Percutaneous Approach (ICD-10-PCS; 2016-11-23)
PROC: B5181ZA Fluoroscopy of Superior Vena Cava using Low Osmolar Contrast, Guidance (ICD-10-PCS; 2016-11-23)
PROC: 0DH63UZ Insertion of Feeding Device into Stomach, Percutaneous Approach (ICD-10-PCS; 2016-11-24)
DX: A41.9 Sepsis, unspecified organism (principal); J96.20 Acute and chronic respiratory failure, unspecified whether with hypoxia or hypercapnia; E43 Unspecified severe protein-calorie malnutrition; E87.2 Acidosis; Z99.81 Dependence on supplemental oxygen; C79.51 Secondary malignant neoplasm of bone; R13.10 Dysphagia, unspecified; J44.9 Chronic obstructive pulmonary disease, unspecified; D64.81 Anemia due to antineoplastic chemotherapy; E86.0 Dehydration; Z66 Do not resuscitate; E78.00 Pure hypercholesterolemia, unspecified; Z51.5 Encounter for palliative care; Z85.118 Personal history of other malignant neoplasm of bronchus and lung; Z88.0 Allergy status to penicillin; Z92.21 Personal history of antineoplastic chemotherapy; Z79.899 Other long term (current) drug therapy; Z68.1 Body mass index [BMI] 19.9 or less, adult
CPT/HCPCS: 36415; 36569; 36600; 51702; 71010; 73100; 76937; 77001; 80048; 80053; 80202; 81001; 82375; 82550; 82553; 82607; 82728; 82746; 82805; 83010; 83540; 83550; 83605; 84443; 84484; 85025; 85027; 85044; 85610; 85730; 86850; 86900; 86920; 87040; 87086; 93005; 94640; 94664; 96361; 96365; 96367; 96375; 99291; A4216; A6261; C1725; C9113; J1956; J2060; J2250; J2270; J2920; J3010; J3370; J3480; J7030; J7040; J7050; J7060; J7620; J7626; P9016; A4315